=== PATIENT | female | born 1965 | race Two or more races ===

== ENCOUNTER 2024-05-07 08:20 | Inpatient (IN) | payer OTHER, SELFPAY ==
[2024-05-05 09:50] VITALS: BMI 29.2
--- NOTE | 2024-05-05 10:13 | EKG_ITS ---
[facility] Test Date: 2024-05-05 Pat Name: JOEY DURON Department: Room: - Gender: Female Genetics Physician: RTSJC : 1965 Requested By: Herman Greer Order Number: [id number] Reading MD: Herman Greer Measurements Intervals [place] Rate: 83 P: 55 AL: 151 QRS: 12 QRSD: 102 T: 58 QT: 423 QTc: 498 Interpretive Statements SINUS RHYTHM INDETERMINATE AXIS INCOMPLETE RIGHT BUNDLE BRANCH BLOCK No previous ECG available for comparison /[id number]/[id number]
[2024-05-05 10:29] LABS: Basophils # (Auto) 0.1 Thou/mm3 (0.0-0.2); Basophils % (Auto) 1 % (0-2.5); Eosinophils # (Auto) 0.2 Thou/mm3 (0.0-0.5); Eosinophils % (Auto) 3 % (0-10); Hematocrit 37.6 % (36.0-46.0); Hemoglobin 12.8 g/dL (12.0-16.0); Immature Granulocytes % (Auto) 0 % (0-0); Immature Granulocytes Auto 0.03 Thou/mm3 (0.00-0.00); Lymphocytes # (Auto) 2.3 Thou/mm3 (1.0-4.8); Lymphocytes % (Auto) 29 % (10-50); Mean Corpuscular Hemoglobin 30.8 pg (25.0-35.0); Mean Corpuscular Volume 91 fL (80-100); Monocytes # (Auto) 0.8 Thou/mm3 (0.0-0.8); Monocytes % (Auto) 10 % (0-12); Neutrophils # (Auto) 4.6 Thou/mm3 (1.8-7.7); Neutrophils % (Auto) 57 % (37-80); Nucleated Red Blood Cell % 0 /100 WBC (0); Platelet Count 212 Thou/mm3 (140-440); RDW Standard Deviation 41.8 fL (36.4-46.3); Red Blood Count 4.15 Miln/mm3 (4.00-5.20); White Blood Count 8.1 Thou/mm3 (3.6-11.0)
[2024-05-05 10:46] LABS: Alanine Aminotransferase 17 U/L (10-49); Albumin, Serum 4.7 gm/dL (3.5-5.0); Albumin/Globulin Ratio 1.7 (1.2-2.2); Alkaline Phosphatase 83 U/L (46-116); Anion Gap 10 (7-16); Aspartate Amino Transferase 17 U/L (0-34); BUN/Creatinine Ratio 5 Ratio (12-20); Bilirubin,Total 0.5 mg/dL (0.3-1.2); Blood Urea Nitrogen 23 mg/dL (9-23); Calcium 9.9 mg/dL (8.3-10.6); Calcium (Corrected) 9.9 mg/dL (8.5-10.1); Carbon Dioxide 29.7 mMol/L (20.0-31.0); Chloride 95 mMol/L (98-107); Estimated Creatinine Clearance 11.3 mL/min (>60); Globulin 2.7 gm/dL (2.3-3.5); Glucose 240 mg/dL (74-106); Osmolality,Calculated 281 (275-295); Sodium 135 mMol/L (136-145); Total Protein 7.4 gm/dL (5.7-8.2); eGFR 10 See Note
--- NOTE | 2024-05-05 14:21 | SUR.PREOP ---
cardiac history and records reviewed with Dr Greer.
[2024-05-07] VITALS (27 sets, daily range): BP systolic 103–150; BP diastolic 54–73; PULSE 65–81; RESP 12–21; TEMP 36.2–36.7; O2SAT 96–100; BMI 29.3
--- NOTE | 2024-05-07 07:53 | PD.GYNHP ---
Documentation for date of: 05/07/24 PATIENT ACCESS DIRECTOR - HPI History of Present Illness History of present illness: HPI: The patient presents today for a total abdominal hysterectomy. She has a history of long-standing uterine fibroids, previously described as the size of a grapefruit by her former provider. The patient reports that her pain has significantly increased since her stroke in 2020, which she attributes to the use of blood thinners. She also mentions that one side of her abdomen/pelvis feels larger and experiences pain when touched or when putting on her pants. She states that Tylenol provides minimal relief for her pain, and she is unable to use any NSAIDs. The patient is currently on aspirin and under the care of a neurologist in [place]. Her most recent ultrasound, performed in January 2024, revealed a large round uterus with multiple fibroids, the largest measuring 7 centimeters and another significant one at 3 centimeters. The endometrial stripe was not visible. The patient is aware of the planned 2-night postoperative stay at the hospital and subsequent discharge home on pain medications with a graded recovery regimen. She understands that she will follow up with her PCP after 2 weeks for her medical conditions and with the current provider for her postoperative care until complete recovery. Meds Home Medications and Allergies Home Medications ?Medication ?Instructions ?Recorded ?Confirmed ?Type bumetanide 2 mg tablet 2 mg PO BID 05/06/24 05/06/24 History carvedilol 6.25 mg tablet 6.25 mg PO BID 05/06/24 05/06/24 History gabapentin 100 mg capsule 100 mg PO HS 05/06/24 05/06/24 History levothyroxine 50 mcg capsule 50 mcg PO QDAY 05/06/24 05/06/24 History Allergies Allergy/AdvReac Type Severity Reaction Status Date / Time No Known Allergies Allergy Verified 05/05/24 09:49 Exam - PATIENT ACCESS DIRECTOR Narrative Exam Physical Examination: - General: Patient alert and oriented x3. - Respiratory: Lungs clear to auscultation. - Cardiovascular: Heart sounds normal, no murmurs or abnormal sounds. - Abdominal: Uterus palpable one finger below the umbilicus with multiple irregular fibroid-like structures. - Gynecologic: Sterile speculum exam reveals an enlarged lobular cervix without abnormalities. Bi-manual exam consistent with abdominal findings; enlarged uterus noted, adnexa not palpable. PATIENT ACCESS DIRECTOR - Results Labs 05/05/24 10:16 05/05/24 10:16 Imaging and Cardiology US Pelvic: Additional comments: Diagnostic Test Results and Labs: Ultrasound (January 2024): Large round uterus with multiple fibroids, the largest measuring 7 cm and another significant one at 3 cm. Endometrial stripe not visible. Assessment and Plan Assessment and plan (1) Intramural leiomyoma of uterus: Status: Acute Assessment and plan: Treatment Note: Uterine Fibroids: - History of long-standing uterine fibroids - Recent ultrasound (Jan 2024) shows large round uterus with multiple fibroids - Largest fibroid 7cm, another significant one 3cm - Endometrial stripe not visible - Patient reports one side of abdomen/pelvis feels bigger - Experiences pain when touched or putting on pants - Physical exam: uterus one finger below umbilicus, multiple irregular fibroid-like structures palpated - Plan: Total abdominal hysterectomy with bilateral salpingectomy, possible oophorectomy - Patient scheduled and consented for procedure - 2-night postoperative hospital stay planned Chronic Pain: - Reports significant pain increase - Tylenol provides minimal relief, unable to use NSAIDs - Pain worsened after stroke due to blood thinners - Plan: Manage postoperative pain with appropriate medications, monitor and adjust during recovery Stroke History (2020): - Had stroke in 2020 - Currently on aspirin, under care of neurologist from [place] - Plan: Discontinued aspirin, evaluated by primary care for medical optimization - Continue coordinating care with neurologist and primary care provider Postoperative Care: - Follow up with primary care provider after 2 weeks for medical conditions - Follow up with Dr. Stevie Cope for postoperative care until complete recovery Quality Measures Quality Measures VTE prophylaxis
[2024-05-07 09:07] LABS: Potassium 3.6 mMol/L (3.4-5.1)
[2024-05-07] MEDS: SODIUM CHLORIDE 0.9% 500 ML 500 ML 20 ML IV (09:16)
--- NOTE | 2024-05-07 11:31 | PD.GYNPROC ---
Operative Note - [employer] Procedure Date of procedure: 05/07/24 Procedure Performed: Abdominal supracervical hysterectomy Bilateral salpingectomy Indication: Leiomyoma of uterus with intractable bleeding unresponsive to medications Multiple medical complications including history of stroke, end-stage renal disease on chronic dialysis Anesthesia type: General Procedure description: Informed consent was obtained, and the patient was taken to the operating room. Identity was confirmed using double identifiers, and the patient was positioned in the supine position on the operating table. General anesthesia was administered, and the abdomen and perineum were prepped in the usual sterile fashion. A Avitia catheter was placed for continuous drainage, and sterile drapes were applied. A timeout procedure was completed. A Pfannenstiel skin incision was made with a scalpel and carried down through the subcutaneous fat to the rectus fascia. The rectus fascia was incised on either side of the midline, and the incisions were extended bilaterally using Carroll scissors. The rectus fascia was grasped with Michael clamps and dissected off the anterior surface of the rectus muscle superiorly and inferiorly. The rectus muscles were in the midline, and the peritoneum was identified and entered bluntly. The peritoneal opening was gently stretched to create adequate access to the pelvic cavity. An Sam O-ring retractor was placed, and the bowel was packed out of the operative field. The uterus was grasped with a double-tooth tenaculum. A significant amount of bladder adhesion was noted, requiring approximately 20 minutes of dissection to divide adhesions and gain access to the uterovesical peritoneum. The uterus was placed under traction, and dissection was initiated on the right side. The utero-ovarian ligament was divided using the Enseal Large Jaw. The fallopian tube was dissected separately and divided. The round ligament was divided, and the anterior and posterior leaves of the broad ligament were . The anterior leaf was dissected to the bladder reflection to create the bladder flap, and the posterior leaf was dissected down to the uterosacral ligament. Dissection continued down the uterine sidewall until the uterine artery was skeletonized, occluded, and divided. The procedure was repeated on the contralateral side. At the level of the cervix, Snow clamps were applied, and a supracervical hysterectomy was performed. The uterine corpus was amputated and sent for pathological examination. The remaining cervical stump was inspected, and hemostasis was confirmed. The peritoneal edges were reapproximated with 2-0 Vicryl. The rectus muscles were reapproximated using 3-0 Vicryl, and the rectus fascia was closed with 1-0 PDS in a running fashion. The subcutaneous layer was closed using 2-0 Monocryl Stratafix in a running fashion to obliterate space. The skin was closed with guilherme. The incision was cleaned, and a sterile pressure dressing was applied. The patient was undraped, anesthesia was reversed, and the patient was transferred to the recovery room in stable and awake condition. The patient tolerated the procedure well. No acute complications were encountered during the procedure. All instrument, sponge, and lap counts were correct ?2. Estimated blood loss (ml): 100 Complications: none Surgical staff Operation Date: 05/07/24 10:45 Case Staff Anesthesiologist: Herman Greer RNcounty or city auditor: Elidia Buchanan Diagnosis Discharge Diagnosis (1) Intramural leiomyoma of uterus: Status: Acute Problem List Completed Was Problem List Reviewed/Reconciled?: Yes
--- NOTE | 2024-05-07 11:41 | SUR.PHASEI ---
Pt. arrived to recovery via bed, eyes closed, unable to respond, pt. has oral airway in place, VSS, lung sounds clear, equal expansion ramirez., pt. receiving 8 liters 02 via oxymask, dressing to lower abdomen, prineo, dermabond, telfa, abd. pad, hypafix tape intact, no active bleeding noted, iraheta catheter in place, patent and draining, assessed AVF to right upper arm, bruit and thrill present. Report received from Adelfo SIDDIQUI and Dr. Greer.
--- NOTE | 2024-05-07 11:47 | SUR.PHASEI ---
1147: Received report from Concepcion SIDDIQUI. Pt. has oral airway in place, vitals stable, breathing unlabored, dressing to lower ABD CDI, no active bleed noted.
[2024-05-07] MEDS: MORPHINE SULF 1 MG/ML PCA SYRINGE 30 ML 30 MG IV (12:35)
[2024-05-07] MEDS: ONDANSETRON INJ 2 MG/ML INJ 2 ML 4 MG IV (12:46)
--- NOTE | 2024-05-07 13:02 | PD.ANESPROG ---
Documentation for date of: 05/07/24 ANESTHESIA NOTE: Patient had GETA for abdominal hysterectomy with BSO earlier today. Pre-op, she has h/o ESRD (last HD yesterday via R arm AVG), HTN, DM, CHF (EF 40% with some valvular insufficiency as reported in cardiac notes, s/p AICD), and CVA with R sided weakness with R UE weakness improved but still with residual R LE weakness and uses walker. She also reported h/o b/l blindness lasting 2 months about 2 months ago and seen by specialist and had b/l cataract surgery after which her vision is better. She did very well intra-op and has been in PACU post op doing well, resting comfortably, VSS. She was given 2 gm IV Ancef and 500 mg IV Flagyl intra-op, EBL 100 cc, Avitia placed. She received about 350 cc of IV fluids intra-op and another about 100 cc of NS in PACU. Magnet was placed over her AICD intra-op before the incision and taken off at the end of surgery. I discussed with the surgeon to consider medicine/nephrology consult to continue her dialysis while she is inpatient. Herman Greer MD Anesthesia Progress Note Progress Note Most recent Vital Signs: Last Vital Signs Temp 97.2 F 05/07/24 13:00 Pulse 67 05/07/24 13:00 Resp 12 05/07/24 13:00 BP 115/60 05/07/24 13:00 Pulse Ox 98 05/07/24 13:00 O2 Flow Rate 3 05/07/24 13:00
[2024-05-07] MEDS: SODIUM CHLORIDE 0.9% 1000 ML 1,000 ML 75 ML IV (13:54)
--- NOTE | 2024-05-07 15:19 | ESCONSULT_ITS ---
HPI Consultation - Hospitalist Data of Consult Requesting Physician: Stevie Cope MD Primary Care Provider: Jorge A Crocker MD Consult Narrative Reason for consult: ESRD on hemodialysis, postop management History of present illness: Patient is a 58-year-old female with history of leiomyoma of uterus who presented for hysterectomy. She has a past medical history noted for ESRD on hemodialysis, followed by Dr. Eugene in [place], receiving hemodialysis through her right upper extremity fistula. Per records, she also has history of heart failure with reduced EF of 40%. Per reports, she also has a history of CVA with right-sided residual, bilateral blindness, hypothyroidism and hypertension. She is status post AICD. Patient has been having worsening abdominal pain that is associated with nausea and vomiting. She was diagnosed with leiomyoma of uterus with intractable bleeding unresponsive to medications. Patient followed with [employer] who arranged for hysterectomy. She is a status post abdominal supracervical hysterectomy and bilateral salpingectomy by Dr. Cope. [employer] recommended to inpatient night stays. Internal medicine team was consulted for management of multiple chronic health conditions and for postoperative management. Patient was seen postoperatively. She was in the PACU. She has mild pain which is responding to IV opiates. She has nausea. She did not have any vomiting after the surgery. She reported no chest pain or shortness of breath. Past medical history: As above Social history: She reported no current tobacco use, alcohol use, or illicit drug use Surgical history: She reported multiple surgeries including , cholecystectomy, permacath insertion, dialysis fistula on the right upper extremity, in addition to her recent hysterectomy Family history: Positive for diabetes in her sister. Negative for kidney disease No reported drug allergies Medications were reviewed cc:: cc: Stevie Cope MD Review of Systems Review of Systems Narrative Review of Systems: General: No fevers, no chills, no weight loss, no sweating, no generalized weakness. Eyes: No changes in vision from baseline. HEENT: No head trauma, no neck trauma, no difficulty swallowing, no nasal congestion, no sore throat. Respiratory: No cough, no sputum production, no shortness of breath. Cardiovascular: No chest pain, no palpitations, no extremity swelling. Abdomen: Positive abdominal pain, positive nausea, no vomiting, no diarrhea, no constipation. Genitourinary: No dysuria, no changes in urine appearance, no changes in urine amount and frequency from baseline Skin: No new rash reported. Musculoskeletal: No muscle pain, no muscle weakness. Neuro: No weakness, no numbness, no facial deviation, no dizziness. Psych: No current depressive symptoms. No anxiety. Meds Home Medications and Allergies Home Medications ?Medication ?Instructions ?Recorded ?Confirmed ?Type bumetanide 2 mg tablet 2 mg PO BID 05/06/24 05/06/24 History carvedilol 6.25 mg tablet 6.25 mg PO BID 05/06/24 05/06/24 History gabapentin 100 mg capsule 100 mg PO HS 05/06/24 05/06/24 History levothyroxine 50 mcg capsule 50 mcg PO QDAY 05/06/24 05/06/24 History Allergies Allergy/AdvReac Type Severity Reaction Status Date / Time No Known Allergies Allergy Verified 05/07/24 17:04 Exam Vital Signs Temp Pulse Resp BP Pulse Ox O2 Flow Rate 97.2 F 67 17 108/67 96 3 05/07/24 14:00 05/07/24 14:00 05/07/24 14:00 05/07/24 14:00 05/07/24 14:00 05/07/24 14:00 Narrative General: Alert and oriented x3. In no acute distress. Eyes: Pupils are equal and reactive to light bilaterally. HEENT: Atraumatic, normocephalic. No JVD noted. Cardiovascular: Normal S1 and S2. Normal rate and regular rhythm. No murmurs appreciated. No peripheral pitting edema noted. No JVD noted. Respiratory: No respiratory distress. Lungs are clear to auscultation bilaterally. No wheezing or crackles heard. Abdomen: Abdominal binder in place, abdomen is soft and nontender to palpation. Wound dressing appears intact without oozing. Skin: No rash. Warm to touch. Musculoskeletal: No gross injuries. Able to move all 4 extremities. Neuro: Alert and oriented x3. Sensation is intact throughout. Strength is 5/5 and symmetric. No focal neuro deficits. Psych: Normal affect and mood. Results - Hospitalist Labs Diagrams: 05/05/24 10:16 05/07/24 08:40 Labs: [facility] 05/07/24 08:40 Potassium 3.6 Assessment & Plan -Hospitalist Patient Synopsis 58-year-old female with history of symptomatic leiomyoma of uterus, heart failure with reduced EF, CVA, status post AICD, ESRD on hemodialysis, who presented for hysterectomy. Leiomyoma of uterus She is a status post abdominal supracervical hysterectomy and bilateral salpingectomy by Dr. Cope. Plan: Management of pain as needed. She is requiring IV morphine. Management of nausea/vomiting as needed Bowel regimen. Watch for bowel movement Recommend to hold IV fluids in the setting of history of CHF. Resume renal diet postoperatively Chronic CHF Status post AICD Per reports, she has history of heart failure with a EF of 40%, status post AICD. She does not look in exacerbation Plan: Resume home Bumex starting tomorrow Resume home carvedilol Recommend against IV fluids if the patient is started on diet given her associated ESRD ESRD on hemodialysis Followed by Dr. Eugene in [place]. She is on Saturday schedule. She receives hemodialysis via right arm fistula. Plan: Consulted Dr. Vigil for hemodialysis sessions Dose medications based on ESRD GFR Monitor BMP Renal diet History of CVA With reported right-sided residuals. No new neurodeficits. Plan: Resume home aspirin starting 05/08. Quality Measures Quality Measures VTE prophylaxis
--- NOTE | 2024-05-07 16:39 | SUR.PHASEI ---
1639: Report given to Concepcion RN, Pt. sitting upright in fowlers position, eating crackers and sipping on water, tolerating well, dressing to ABD CDI, no active bleed noted. Pt. vitals stable, breathing unlabored, no complaint of pain or nausea.
--- NOTE | 2024-05-07 16:40 | SUR.PHASEI ---
Received report on pt. s/p surgery from Olive SIDDIQUI, pt. is resting, AAOx3, VSS, no c/o pain or nausea at this time, dressing to lower abd. CDI, abdominal binder in place, IV flushed and patent, pt. has [employer] button in hand.
[2024-05-07] MEDS: ACETAMINOPHEN IVPB 1,000 MG/100 ML VIAL 250 MG IV ×2 (17:04→23:08)
--- NOTE | 2024-05-07 18:12 | ESCONSULT_ITS ---
HPI Data of Consult Consult date: 05/07/24 Requesting Physician: Stevie Cope MD Admitting Provider: Stevie Cope MD Attending Provider: Stevie Cope MD Primary Care Provider: Jorge A Crocker MD Consult Narrative Reason for consult: ESRD on hemodialysis History of present illness: The patient is a 58-year-old female with a previous medical history of end-stage renal disease on hemodialysis, last dialysis session was done yesterday, hypertension, diabetes, HFrEF status post AICD implantation, status post CVA with right-sided weakness, status post cataract surgery who was admitted to the hospital for elective hysterectomy. Operation went without complications, EBL 100 mL, early postoperative unremarkable. The plan is for the patient to stay in the hospital for a few days for postoperative management and monitoring. PAtient;s compliance program manager is Dr. Eugene in [place]. Relay Worker Dr. Vigil was consulted for end-stage renal disease management and planned dialysis. In the post op room: Blood pressure 198/61, heart rate 67, afebrile. She denies shortness of breath, chest pain, abdominal pain, increased leg swelling. Labs 05/05/2024 showed WBCs 8.1, hemoglobin 12.8, sodium 135, potassium 4.0, chloride 95, BUN 23, creatinine 5, EGFR 10, glucose 240. cc:: cc: Stevie Cope MD Review of Systems Review of Systems Narrative Review of Systems: General: Denies weight loss, fever and chills. HEENT: Denies changes in vision and hearing. Resp: Denies SOB, cough and wheezing. CVS: Denies palpitations and CP. GI: Denies abdominal pain, nausea, vomiting and diarrhea. : Denies dysuria and urinary frequency. MSK: Denies myalgia and joint pain. Denies rash and pruritus. Neuro: Denies headache and syncope. Psych: Denies recent changes in mood. Denies anxiety and depression. Past Medical History Past Medical History NEUROLOGIC: Positive Cerebrovascular Accident CARDIAC: Positive Cardiac Disorders, Coronary Artery Disease and Hypertension GENITOURINARY: Positive Chronic Kidney Disease, Renal Disease and Dialysis REPRODUCTIVE: Positive Fibroids ENT: Positive Cataracts ENDOCRINE: Positive Endocrine Disorders and Diabetes Mellitus Type 2 Exam Vital Signs Temp Pulse Resp BP Pulse Ox O2 Flow Rate 97.1 F 74 20 123/73 96 2 05/07/24 17:00 05/07/24 18:00 05/07/24 18:00 05/07/24 18:00 05/07/24 18:00 05/07/24 18:00 Narrative Exam Physical Exam General: Awake and in no acute distress. Conversational and non-toxic appearing. HEENT: Normocephalic, atraumatic, mucous membranes moist. Heart: Regular rate and rhythm, no murmurs. Lungs: Clear to auscultation with no wheezing or crackles. Abdomen: Soft, nondistended, nontender, positive bowel sounds. ?No guarding or rebound tenderness. Neurologic: Alert and oriented x3, and patient able to move all 4 extremities. Extremities: No edema. AV fistula + thrill. Skin: No rash or ecchymoses. Results Labs 05/08/24 05:39 05/08/24 05:39 Labs: BMP 05/07/24 08:40 Potassium 3.6 Quality Measures Quality Measures VTE prophylaxis Medications Home Medications and Allergies Home Medications ?Medication ?Instructions ?Recorded ?Confirmed ?Type bumetanide 2 mg tablet 2 mg PO BID 05/06/24 05/06/24 History carvedilol 6.25 mg tablet 6.25 mg PO BID 05/06/24 05/06/24 History gabapentin 100 mg capsule 100 mg PO HS 05/06/24 05/06/24 History levothyroxine 50 mcg capsule 50 mcg PO QDAY 05/06/24 05/06/24 History Allergies Allergy/AdvReac Type Severity Reaction Status Date / Time No Known Allergies Allergy Verified 05/07/24 17:04 Visit Medications Bumetanide (Bumetanide 0.5 Mg Tablet) 2 mg PO BID [facility] Stop: 06/06/24 20:59 Carvedilol (Carvedilol 3.125 Mg Tablet) 6.25 mg PO BID [facility] Stop: 06/06/24 20:59 Diphenhydramine HCl (Diphenhydramine Inj 50 Mg/Ml Vial) 25 mg IV Q2HR PRN PRN Reason: ITCHING Stop: 06/06/24 11:42 Docusate Sodium (Docusate Sod 100 Mg Capsule) 100 mg PO QDAY [facility] Stop: 06/07/24 08:59 Gabapentin (Gabapentin 100 Mg Capsule) 100 mg PO HS [facility] Stop: 06/06/24 20:59 Promethazine HCl 25 mg/ Sodium (Chloride) 51 mls @ 2.5 mls/min IV Q6HR PRN PRN Reason: NAUSEA OR VOMITING Stop: 06/06/24 11:42 Sodium Chloride (Ns) 1,000 mls @ 75 mls/hr IV .[id number] [facility] Stop: 06/06/24 11:44 Last Admin: 05/07/24 13:54 Dose: 75 mls/hr Cefazolin Sodium (Ancef 2gm Ivpb) 2 gm in 100 mls @ 100 mls/hr IV Q8HR [facility] Stop: 05/14/24 18:59 Metronidazole (Flagyl 500 Mg Iv) 500 mg in 100 mls @ 200 mls/hr IV Q12H [facility] Stop: 05/14/24 22:29 Acetaminophen (Ofirmev Inj) 1,000 mg in 100 mls @ 250 mls/hr IV Q6H [facility] Stop: 05/10/24 11:59 Last Admin: 05/07/24 17:04 Dose: 250 mls/hr Magnesium Hydroxide (Milk Of Magnesia Susp 30 Ml Udc) 30 ml PO X1 ONE Stop: 05/08/24 08:01 Midazolam HCl (Midazolam Inj 1 Mg/Ml Vial 2 Ml) 1 mg IV Q5MIN PRN PRN Reason: ANXIETY Stop: 05/08/24 11:17 Morphine Sulfate (Morphine Sulf 1 Mg/Ml Inspector Dials Syringe 30 Ml) 30 mg IV PER ORDER PRN; Protocol PRN Reason: PAIN Stop: 05/12/24 11:42 Last Admin: 05/07/24 12:35 Dose: 30 mg Non-Formulary Medication (Levothyroxine) 50 mcg PO ACBR [facility] Stop: 06/07/24 05:59 Ondansetron HCl (Ondansetron Inj 2 Mg/Ml Inj 2 Ml) 4 mg IV Q6HR PRN; Protocol PRN Reason: NAUSEA OR VOMITING Stop: 06/06/24 05:59 Last Admin: 05/07/24 12:46 Dose: 4 mg Discontinued Medications Fentanyl Citrate (Fentanyl Cit Inj 50 Mcg/Ml Amp 2ml) 50 mcg IV Q5MIN PRN PRN Reason: PAIN SCALE 4-10(Mod-Sev Stop: 05/07/24 13:20 Hydralazine HCl (Hydralazine Inj 20 Mg/Ml Vial) 5 mg IV Q20MIN PRN PRN Reason: SEE COMMENTS Stop: 05/07/24 13:00 Hydromorphone HCl (Hydromorphone Inj 2 Mg/Ml Vial) 0.5 mg IV Q10MIN PRN PRN Reason: PAIN SCALE 4-10(Mod-Sev Stop: 05/07/24 13:20 Cefazolin Sodium (Ancef 2gm Ivpb) 2 gm in 100 mls @ 100 mls/hr IV Q8HR MAX Stop: 05/14/24 05:59 Metronidazole (Flagyl 500 Mg Iv) 500 mg in 100 mls @ 200 mls/hr IV Q12H MAX Stop: 05/14/24 07:59 Lactated Ringer's (Lactated Ringers) 1,000 mls @ 20 mls/hr IV .Q24H ONE Stop: 05/08/24 05:59 Sodium Chloride (Ns) 500 mls @ 20 mls/hr IV .Q24H ONE Stop: 05/08/24 05:59 Last Admin: 05/07/24 09:16 Dose: 20 mls/hr Acetaminophen (Ofirmev Inj) 1,000 mg in 100 mls @ 250 mls/hr IV Q6H MAX Stop: 05/10/24 11:59 Meperidine HCl (Meperidine Inj 50 Mg/Ml Vial) 12.5 mg IV Q5M PRN PRN Reason: SHIVERING Stop: 05/07/24 14:00 Metoprolol Tartrate (Metoprolol Tartrate Inj 1 Mg/Ml Amp 5 Ml) 1 mg IVP Q5MIN PRN PRN Reason: TACHYCARDIA Stop: 05/07/24 13:26 Assessment & Plan Plan The patient is a 58-year-old female with a previous medical history of end-stage renal disease on hemodialysis, last dialysis session was done yesterday, hypertension, diabetes, HFrEF status post AICD implantation, status post CVA with right-sided weakness, status post cataract surgery who was admitted to the hospital for elective hysterectomy. Operation went without complications, EBL 100 mL, early postoperative unremarkable. The plan is for the patient to stay in the hospital for a few days for postoperative management and monitoring. Relay Worker Dr. Vigil was consulted for end-stage renal disease management and planned dialysis. #ESRD on dialysis Plan: - continue with dialysis as planned #S/p hysterectomy 05/07/24 #HTN #Diabetes #HFrEF EF 40% s/p ICD placement #History of CVA with right sided hemiparesis - management per primary team Plan of care discussed with attending Dr. Yaritza Ocampo MD, PGY 1. Attending Provider Attestation/Addendum Patient seen and examined with resident physician Dr. Rodriguez. Note reviewed, agree with findings and recommendations. Patient of Dr. Eugene admitted for hysterectomy. Dialysis scheduled for tomorrow. Thank you Dr. Haddad for allowing me to participate in the care of Ms. Paredes
--- NOTE | 2024-05-07 18:15 | SUR.OPER ---
Pt. sitting up eating her dinner, no c/o pain or nausea at this time.
--- NOTE | 2024-05-07 19:20 | SUR.PHASEI ---
Called and gave report on pt. s/p surgery to Luis SIDDIQUI on M/S unit, pt. is resting, no c/o pain or nausea at this time.
--- NOTE | 2024-05-07 19:30 | SUR.PHASEI ---
Pt. transferred to room 359 via bed with all of belongings, VSS, no c/o pain or nausea, dressing to lower abdomen CDI, pt. receiving 2 liters 02 via NC, lung sounds clear, equal expansion ramirez., IV flushed and patent, iraheta intact and patent, pt. has BIOINFORMATICS TECHNICIAN button within reach, educated on use. Luis SIDDIQUI assumed care of pt.
[2024-05-07] MEDS: ceFAZolin/D5W 2 GM IV 2 GM/100 ML BAG IV (20:33)
[2024-05-07] MEDS: GABAPENTIN 100 MG CAPSULE PO (20:33)
[2024-05-07] MEDS: BUMETANIDE 0.5 MG TABLET 2 MG PO (20:34)
[2024-05-07] MEDS: carVEDILOL 3.125 MG TABLET 6.25 MG PO (20:35)
[2024-05-07] MEDS: metroNIDAZOLE/NS 500 MG IVPB 500 MG/100 ML BAG 200 MG IV (22:01)
[2024-05-07] MEDS: INSULIN LISPRO (AdmeLOG) 1 UNIT/0.01 ML UNIT SC (23:09)
[2024-05-08] VITALS (24 sets, daily range): BP systolic 108–147; BP diastolic 47–71; PULSE 71–80; RESP 16–18; TEMP 36.2–36.7; O2SAT 94–100
[2024-05-08] MEDS: ONDANSETRON INJ 2 MG/ML INJ 2 ML 4 MG IV (02:08)
[2024-05-08] MEDS: ceFAZolin/D5W 2 GM IV 2 GM/100 ML BAG IV ×2 (05:19→21:05)
[2024-05-08 06:14] LABS: Basophils # (Auto) 0.1 Thou/mm3 (0.0-0.2); Basophils % (Auto) 0 % (0-2.5); Eosinophils % (Auto) 0 % (0-10); Hematocrit 32.7 % (36.0-46.0); Hemoglobin 10.9 g/dL (12.0-16.0); Immature Granulocytes % (Auto) 0 % (0-0); Immature Granulocytes Auto 0.06 Thou/mm3 (0.00-0.00); Lymphocytes % (Auto) 14 % (10-50); Mean Corpuscular HGB Conc 33.3 g/dl (31.0-37.0); Mean Corpuscular Hemoglobin 30.8 pg (25.0-35.0); Mean Corpuscular Volume 92 fL (80-100); Monocytes # (Auto) 1.6 Thou/mm3 (0.0-0.8); Monocytes % (Auto) 11 % (0-12); Neutrophils # (Auto) 10.4 Thou/mm3 (1.8-7.7); Neutrophils % (Auto) 74 % (37-80); Nucleated Red Blood Cell % 0 /100 WBC (0); Platelet Count 167 Thou/mm3 (140-440); RDW Standard Deviation 42.7 fL (36.4-46.3); Red Blood Count 3.54 Miln/mm3 (4.00-5.20); White Blood Count 14.1 Thou/mm3 (3.6-11.0)
[2024-05-08 06:51] LABS: Anion Gap 13 (7-16); BUN/Creatinine Ratio 5 Ratio (12-20); Blood Urea Nitrogen 31 mg/dL (9-23); Calcium 8.5 mg/dL (8.3-10.6); Chloride 97 mMol/L (98-107); Estimated Creatinine Clearance 9.4 mL/min (>60); Glucose 149 mg/dL (74-106); Osmolality,Calculated 277 (275-295); Potassium 3.8 mMol/L (3.4-5.1); Sodium 134 mMol/L (136-145); eGFR 8 See Note
[2024-05-08] MEDS: INSULIN LISPRO (AdmeLOG) 1 UNIT/0.01 ML UNIT SC ×3 (07:19→21:06)
--- NOTE | 2024-05-08 07:51 | PD.RESPRO ---
Documentation for date of: 05/08/24 Subjective Subjective Interval history: Patient seen and examined at bedside. No acute overnight events. Vitals, labs reviewed. Leukocytosis likely reactive after surgical procedure. CHEM panel significant for ESRD related labs, with patient's scheduled to undergo hemodialysis today. Patient states she does feel some pain when she coughs but overall is well-controlled and has not had to use the THERAPIST RRT pump. She is tolerating diet without any nausea or vomiting. She has not passed gas or had a bowel movement at this time. Will try stool softener. She is complaining about her Avitia catheter irritating her. Would recommend a voiding trial and possibly DC the Avitia if patient is to spontaneously void on her own. Also recommend incentive spirometry to prevent postop atelectasis. Exam Vital Signs Temp Pulse Resp BP Pulse Ox O2 Del Method O2 Flow Rate 97.8 F 73 16 115/65 97 Nasal Cannula 2 05/08/24 04:00 05/08/24 04:00 05/08/24 04:00 05/08/24 04:00 05/08/24 04:00 05/08/24 04:00 05/08/24 04:00 Narrative Exam Gen: AAOx3, resting comfortably, pleasant to speak with HEENT: NCAT, PERRLA, EOMI, MMM CVS: normal S1, S2. RRR. No MRG Resp: CTA B/L. No rhonchi, rales, crackles or wheezing Abd: soft, mild TTP, non-distended. BS+ in all 4 quadrants. Abdominal binder noted : Avitia noted, no hematuria/clots/sediment MSK: Good ROM in BUE & BLE. No edema or rash. Fistula in RUE Neuro: CN II-XII grossly intact. Strength 5/5 in BUE & BLE. Objective Labs 05/09/24 05:30 05/09/24 05:30 Labs: Laboratory Results - last 24 hr 05/07/24 05/08/24 08:40 05:39 WBC 14.1 H D RBC 3.54 L Hgb 10.9 L Hct 32.7 L MCV 92 MCH 30.8 MCHC 33.3 RDW Std Deviation 42.7 Plt Count 167 D Neut % (Auto) 74 Lymph % (Auto) 14 [place] % (Auto) 11 Eos % (Auto) 0 Baso % (Auto) 0 Neut # (Auto) 10.4 H Lymph # (Auto) 2.0 [place] # (Auto) 1.6 H Eos # (Auto) 0.0 Baso # (Auto) 0.1 Immature Gran # (Auto) 0.06 H Absolute Nucleated RBC 0.00 Immature Gran % 0 Nucleated RBC % 0 Sodium 134 L Potassium 3.6 3.8 Chloride 97 L Carbon Dioxide 24.0 Anion Gap 13 BUN 31 H Creatinine 6.0 H* D Estim Creat Clear Calc 9.4 L eGFR 8 L* BUN/Creatinine Ratio 5 L Glucose 149 H D Calculated Osmolality 277 Calcium 8.5 Quality Measures Quality Measures VTE prophylaxis Assessment & Plan Assessment Current Active Medications: Generic Name Dose Route Start Last Admin Trade Name Freq PRN Reason Stop Dose Admin Bumetanide 2 mg 05/07/24 21:00 05/07/24 20:34 Bumetanide 0.5 Mg Tablet PO 06/06/24 20:59 2 mg BID MAX Administration Carvedilol 6.25 mg 05/07/24 21:00 05/07/24 20:35 Carvedilol 3.125 Mg Tablet PO 06/06/24 20:59 6.25 mg BID MAX Administration Dextrose 25 ml 05/07/24 22:33 Dextrose 50%-Water Inj 50 Ml Syringe IV 06/06/24 22:32 Q15MIN PRN BG 50-70 responsive npo pt Dextrose 50 ml 05/07/24 22:33 Dextrose 50%-Water Inj 50 Ml Syringe IV 06/06/24 22:32 Q15MIN PRN BG <50 OR BG <70 & pt unresponsive Diphenhydramine HCl 25 mg 05/07/24 11:43 Diphenhydramine Inj 50 Mg/Ml Vial IV 06/06/24 11:42 Q2HR PRN ITCHING Docusate Sodium 100 mg 05/08/24 09:00 Docusate Sod 100 Mg Capsule PO 06/07/24 08:59 QDAY MAX Gabapentin 100 mg 05/07/24 21:00 05/07/24 20:33 Gabapentin 100 Mg Capsule PO 06/06/24 20:59 100 mg HS MAX Administration Glucagon 1 mg 05/07/24 22:33 Glucagon Inj 1 Mg Vial IM Q15MIN PRN BG <70, and no IV access Promethazine HCl 25 mg/ Sodium 51 mls @ 2.5 mls/min 05/07/24 11:43 Chloride IV 06/06/24 11:42 Q6HR PRN NAUSEA OR VOMITING Sodium Chloride 1,000 mls @ 75 mls/hr 05/07/24 11:45 05/07/24 13:54 Ns IV 06/06/24 11:44 75 mls/hr .[id number] MAX Administration Cefazolin Sodium 2 gm in 100 mls @ 100 mls/hr 05/07/24 19:00 05/08/24 05:19 Ancef 2gm Ivpb IV 05/14/24 18:59 100 mls/hr Q8HR MAX Administration Metronidazole 500 mg in 100 mls @ 200 mls/hr 05/07/24 22:30 05/07/24 22:01 Flagyl 500 Mg Iv IV 05/14/24 22:29 200 mls/hr Q12H MAX Administration Acetaminophen 1,000 mg in 100 mls @ 250 mls/hr 05/08/24 08:00 Ofirmev Inj IV 05/10/24 11:59 Q6H [facility] Insulin Human Lispro 0 unit 05/07/24 22:48 05/08/24 07:19 Insulin Lispro (Admelog) 1 Unit/0.01 Ml Unit SC 06/06/24 22:47 1 unit ACHS MAX Administration Protocol Magnesium Hydroxide 30 ml 05/08/24 08:00 Milk Of Magnesia Susp 30 Ml Udc PO 05/08/24 08:01 X1 ONE Morphine Sulfate 30 mg 05/07/24 11:43 05/07/24 12:35 Morphine Sulf 1 Mg/Ml Peanut Sorter Syringe 30 Ml IV 05/12/24 11:42 30 mg PER ORDER PRN Administration PAIN Protocol Non-Formulary Medication 50 mcg 05/08/24 06:00 05/08/24 07:10 Levothyroxine PO 06/07/24 05:59 Not Given ACBR MAX Ondansetron HCl 4 mg 05/07/24 06:00 05/08/24 02:08 Ondansetron Inj 2 Mg/Ml Inj 2 Ml IV 06/06/24 05:59 4 mg Q6HR PRN Administration NAUSEA OR VOMITING Protocol Plan Patient is a 58-year-old female with ESRD on HD MWF, HFrEF with last EF 40% hypertension, hypothyroidism and history of CVA who underwent total abdominal hysterectomy with bilateral salpingectomy with gynecology. Postop day 1. Hospitalist team was consulted to manage comorbid conditions, including CHF, ESRD. #Uterine fibroids, s/p BROOKE BS Patient is postop day 1 Continue pain control with Tylenol, gabapentin and p.o. Dilaudid as needed On Ancef and Flagyl Zofran and promethazine as needed Continue bowel regimen with goal of BM and passed gas. Patient is on docusate and received milk of mag x1; can try dulcolax enema or lactulose. If patient does not have a BM, can consider trying movantik for opioid-related constipation Recommend incentive spirometer to prevent postop atelectasis #ESRD on HD MWF CHEM panel consistent with ESRD labs Nephrology consulted for inpatient hemodialysis Renally dose medications and avoid nephrotoxic agents when possible #HFrEF, last EF 40% #HTN Does not appear to be in exacerbation, as she is saturating well on room air and has no pitting edema in her BLE, with clear breath sounds Would advise gentle IV fluids although patient is tolerating diet at this time Resume home Bumex and Coreg Continue to monitor vitals and renal function #Hypothyroidism Continue home levothyroxine 50 mcg #History of CVA Would recommend starting 81mg ASA Thank you for allowing us to participate in the care of your patient! Patient seen and care discussed with my attending Dr. Haddad. Sarwat Alonzo MD PGY-3 Attending Provider Attestation/Addendum I reviewed labs, imaging, EKG, home medications and prior available records. Face to face evaluation was performed by me. I have personally examined the patient and discussed assessment and plan with the IM team. I reviewed the resident note and agree with the plan with exceptions as below. Leiomyoma status post hysterectomy ESRD on hemodialysis History of CVA Chronic HFpEF Hypothyroidism Management of pain and constipation as needed. Removed Avitia catheter Monitor for bowel movement Hemodialysis on 05/08. Nephrology is following Resume home levofloxacin Management of post hysterectomy per primary team
[2024-05-08] MEDS: carVEDILOL 3.125 MG TABLET 6.25 MG PO (09:12)
[2024-05-08] MEDS: ACETAMINOPHEN IVPB 1,000 MG/100 ML VIAL 250 MG IV ×2 (09:12→20:32)
[2024-05-08] MEDS: DOCUSATE SOD 100 MG CAPSULE PO (09:12)
[2024-05-08] MEDS: BUMETANIDE 0.5 MG TABLET 2 MG PO (09:12)
[2024-05-08] MEDS: Milk Of Magnesia Susp 30 ML UDC PO (09:17)
[2024-05-08] MEDS: metroNIDAZOLE/NS 500 MG IVPB 500 MG/100 ML BAG 200 MG IV ×2 (10:32→22:00)
--- NOTE | 2024-05-08 10:51 | CHAP ---
Patient expressed gratitude for visit and prayer.
[2024-05-08] MEDS: EPOETIN ALFA-EPBX INJ 10,000 UNIT/ML VIAL (NON-ESRD) 10000 UNIT SC (14:32)
--- NOTE | 2024-05-08 15:12 | ESPR_ITS ---
Documentation for date of: 05/08/24 Subjective Subjective Interval history: The patient is a 58-year-old female with a previous medical history of end-stage renal disease on hemodialysis, last dialysis session was done yesterday, hypertension, diabetes, HFrEF status post AICD implantation, status post CVA with right-sided weakness, status post cataract surgery who was admitted to the hospital for elective hysterectomy. Operation went without complications, EBL 100 mL, early postoperative unremarkable. The plan is for the patient to stay in the hospital for a few days for postoperative management and monitoring. P[employer]ient;s semiconductor testing group leader is Dr. Eugene in [place]. Catalyst Operator Gas[employer] Dr. Vigil was consulted for end-stage renal disease management and planned dialysis. In the post op room: Blood pressure 198/61, heart rate 67, afebrile. She denies shortness of breath, chest pain, abdominal pain, increased leg swelling. Labs 05/05/2024 showed WBCs 8.1, hemoglobin 12.8, sodium 135, potassium 4.0, chloride 95, BUN 23, creatinine 5, EGFR 10, glucose 240. 05/08/24: Patient was seen and examined by the bedside. No acute overnight events. Patient reports her abdominal pain is well conrolled, rarely uses EXTENSION SPECIALIST pump. UO is 0.2L. Her dialysis session is scheduled for today. The patient will receive dialysis inpatient on Saturday if she will stay in hospital further. Pertinent labs WBC 14.1, hemoglobin 10.9, hematocrit 32.7%, sodium 134, potassium 3.8, BUN 31, creatinine 6, EGFR 8. Did not have bowel movement yet, will be started on stool softeners. UO is 200 ml, Avitia will removed if she will be able to void on her own. Exam Vital Signs Temp Pulse Resp BP Pulse Ox O2 Del Method O2 Flow Rate 98.0 F 74 16 128/54 L 94 L Nasal Cannula 2 05/08/24 13:47 05/08/24 15:01 05/08/24 13:47 05/08/24 15:01 05/08/24 13:47 05/08/24 12:00 05/08/24 13:47 Narrative Exam Physical Exam General: Awake and in no acute distress. Conversational and non-toxic appearing. HEENT: Normocephalic, atraumatic, mucous membranes moist. Heart: Regular rate and rhythm, no murmurs. Lungs: Clear to auscultation with no wheezing or crackles. Abdomen: Soft, nondistended, nontender, positive bowel sounds. ?No guarding or rebound tenderness. Neurologic: Alert and oriented x3, and patient able to move all 4 extremities. Extremities: No edema. AV fistula + thrill. Skin: No rash or ecchymoses. Objective Labs 05/08/24 05:39 05/08/24 05:39 Labs: Laboratory Results - last 24 hr 05/08/24 05:39 WBC 14.1 H D RBC 3.54 L Hgb 10.9 L Hct 32.7 L MCV 92 MCH 30.8 MCHC 33.3 RDW Std Deviation 42.7 Plt Count 167 D Neut % (Auto) 74 Lymph % (Auto) 14 [place] % (Auto) 11 Eos % (Auto) 0 Baso % (Auto) 0 Neut # (Auto) 10.4 H Lymph # (Auto) 2.0 [place] # (Auto) 1.6 H Eos # (Auto) 0.0 Baso # (Auto) 0.1 Immature Gran # (Auto) 0.06 H Absolute Nucleated RBC 0.00 Immature Gran % 0 Nucleated RBC % 0 Sodium 134 L Potassium 3.8 Chloride 97 L Carbon Dioxide 24.0 Anion Gap 13 BUN 31 H Creatinine 6.0 H* D Estim Creat Clear Calc 9.4 L eGFR 8 L* BUN/Creatinine Ratio 5 L Glucose 149 H D Calculated Osmolality 277 Calcium 8.5 Quality Measures Quality Measures VTE prophylaxis Assessment & Plan Assessment Current Active Medications: Generic Name Dose Route Start Last Admin Trade Name Freq PRN Reason Stop Dose Admin Bumetanide 2 mg 05/07/24 21:00 05/08/24 09:12 Bumetanide 0.5 Mg Tablet PO 06/06/24 20:59 2 mg BID MAX Administration Carvedilol 6.25 mg 05/07/24 21:00 05/08/24 09:12 Carvedilol 3.125 Mg Tablet PO 06/06/24 20:59 6.25 mg BID MAX Administration Dextrose 25 ml 05/07/24 22:33 Dextrose 50%-Water Inj 50 Ml Syringe IV 06/06/24 22:32 Q15MIN PRN BG 50-70 responsive npo pt Dextrose 50 ml 05/07/24 22:33 Dextrose 50%-Water Inj 50 Ml Syringe IV 06/06/24 22:32 Q15MIN PRN BG <50 OR BG <70 & pt unresponsive Diphenhydramine HCl 25 mg 05/07/24 11:43 Diphenhydramine Inj 50 Mg/Ml Vial IV 06/06/24 11:42 Q2HR PRN ITCHING Docusate Sodium 100 mg 05/08/24 09:00 05/08/24 09:12 Docusate Sod 100 Mg Capsule PO 06/07/24 08:59 100 mg QDAY MAX Administration Gabapentin 100 mg 05/07/24 21:00 05/07/24 20:33 Gabapentin 100 Mg Capsule PO 06/06/24 20:59 100 mg HS MAX Administration Glucagon 1 mg 05/07/24 22:33 Glucagon Inj 1 Mg Vial IM Q15MIN PRN BG <70, and no IV access Hydromorphone HCl 2 mg 05/08/24 08:00 Hydromorphone Hcl 2 Mg Tablet PO 05/13/24 07:59 Q3HR PRN PAIN Promethazine HCl 25 mg/ Sodium 51 mls @ 2.5 mls/min 05/07/24 11:43 Chloride IV 06/06/24 11:42 Q6HR PRN NAUSEA OR VOMITING Cefazolin Sodium 2 gm in 100 mls @ 100 mls/hr 05/07/24 19:00 05/08/24 13:58 Ancef 2gm Ivpb IV 05/14/24 18:59 Not Given Q8HR MAX Metronidazole 500 mg in 100 mls @ 200 mls/hr 05/07/24 22:30 05/08/24 10:32 Flagyl 500 Mg Iv IV 05/14/24 22:29 200 mls/hr Q12H MAX Administration Acetaminophen 1,000 mg in 100 mls @ 250 mls/hr 05/08/24 08:00 05/08/24 13:58 Ofirmev Inj IV 05/10/24 11:59 Not Given Q6H MAX Insulin Human Lispro 0 unit 05/07/24 22:48 05/08/24 11:15 Insulin Lispro (Admelog) 1 Unit/0.01 Ml Unit SC 06/06/24 22:47 Not Given ACHS [facility] Protocol Non-Formulary Medication 50 mcg 05/08/24 06:00 05/08/24 07:10 Levothyroxine PO 06/07/24 05:59 Not Given ACBR [facility] Ondansetron HCl 4 mg 05/07/24 06:00 05/08/24 02:08 Ondansetron Inj 2 Mg/Ml Inj 2 Ml IV 06/06/24 05:59 4 mg Q6HR PRN Administration NAUSEA OR VOMITING Protocol Plan The patient is a 58-year-old female with a previous medical history of end-stage renal disease on hemodialysis, last dialysis session was done yesterday, hypertension, diabetes, HFrEF status post AICD implantation, status post CVA with right-sided weakness, status post cataract surgery who was admitted to the hospital for elective hysterectomy. Operation went without complications, EBL 100 mL, early postoperative unremarkable. The plan is for the patient to stay in the hospital for a few days for postoperative management and monitoring. Catalyst Operator Gas[employer] Dr. Vigil was consulted for end-stage renal disease management and planned dialysis. #ESRD on dialysis Plan: - continue with dialysis as planned #S/p hysterectomy 05/07/24 #HTN #Diabetes #HFrEF EF 40% s/p ICD placement #History of CVA with right sided hemiparesis - management per primary team Plan of care discussed with attending Dr. Yaritza Ocampo MD, PGY 1. Attending Provider Attestation/Addendum Patient seen and examined with resident physician Dr. Rodriguez. Note reviewed, agree with findings and recommendations. Patient of Dr. Eugene admitted for hysterectomy. Patient currently seen on dialysis. Tolerating dialysis without any problems. Hemodialysis for 3 hours, 2K, ultrafiltration 2-3 L, Epogen 6000, no heparin ordered. Plan of care discussed with the dialysis nurse. Please see dialysis flowsheet for further details.
[2024-05-08 15:29] LABS: Hepatitis A Antibody IgM Non Reactive (Non React); Hepatitis B Core Antibody IgM Non Reactive (Non React); Hepatitis B Surface Ab Reactive (Immune) (Immune); Hepatitis B Surface Antigen Non Reactive (Non React); Hepatitis C Antibody Non Reactive (Non React)
--- NOTE | 2024-05-08 15:31 | PD.GYNPROG ---
Documentation for date of: 05/08/24 INSPECTOR MATERIAL DISPOSITION Subjective Subjective Interval history: Patient doing well this morning. Pain is adequately controlled on the current regimen. No incisional complaints, no chest pain, shortness of breath, breathing difficulties. Ambulating, tolerating p.o., Hospitalist and nephrology consulting due to her end-stage renal disease requiring dialysis Exam Vital Signs Temp Pulse Resp BP Pulse Ox O2 Del Method O2 Flow Rate 98.0 F 72 16 134/58 H 94 L Nasal Cannula 2 05/08/24 13:47 05/08/24 15:30 05/08/24 13:47 05/08/24 15:30 05/08/24 13:47 05/08/24 12:00 05/08/24 13:47 Constitutional Constitutional: no acute distress Routine HEENT Exam Head: Present normocephalic and atraumatic Eye: Present EOMI and PERRL ENT: Present mucous membranes moist Routine Neck Exam Neck: Present supple and trachea midline Routine Respiratory Exam Respiratory: Present chest non-tender, lungs clear, normal breath sounds and no resp distress Routine Cardiovascular Exam Cardiovascular: Present RRR Routine Abdominal Exam Abdominal: Present soft and normoactive bowel sounds Routine Extremities Exam Extremities: Present full ROM Routine Skin Exam Skin: Present intact and dry Routine Neurological Exam Neurological: Present alert, oriented X3 and CN II-XII intact Routine Psychiatric Exam Psychiatric: Present normal affect and normal thought process Urinary Catheter Management Cath placed during this visit: no INSPECTOR MATERIAL DISPOSITION - PN: Obj Data Labs 05/08/24 05:39 05/08/24 05:39 Labs: Laboratory Results - last 24 hr 05/08/24 05:39 WBC 14.1 H D RBC 3.54 L Hgb 10.9 L Hct 32.7 L MCV 92 MCH 30.8 MCHC 33.3 RDW Std Deviation 42.7 Plt Count 167 D Neut % (Auto) 74 Lymph % (Auto) 14 [place] % (Auto) 11 Eos % (Auto) 0 Baso % (Auto) 0 Neut # (Auto) 10.4 H Lymph # (Auto) 2.0 [place] # (Auto) 1.6 H Eos # (Auto) 0.0 Baso # (Auto) 0.1 Immature Gran # (Auto) 0.06 H Absolute Nucleated RBC 0.00 Immature Gran % 0 Nucleated RBC % 0 Sodium 134 L Potassium 3.8 Chloride 97 L Carbon Dioxide 24.0 Anion Gap 13 BUN 31 H Creatinine 6.0 H* D Estim Creat Clear Calc 9.4 L eGFR 8 L* BUN/Creatinine Ratio 5 L Glucose 149 H D Calculated Osmolality 277 Calcium 8.5 Hepatitis A IgM Ab Non Reactive Hep Bs Antigen Non Reactive Hep Bs Antibody Reactive (Immune) Hep B Core IgM Ab Non Reactive Hepatitis C Antibody Non Reactive INSPECTOR MATERIAL DISPOSITION - A/P Assessment and plan (1) Intramural leiomyoma of uterus: Status: Acute Assessment and plan: POD#1 1. Continue routine post operative care 2. Transition to PO meds. 3. Encourage to ambulate 4. Patient will be ready for discharge from a gynecologic standpoint/postoperative standpoint on 05/09/2024. Request medicine/nephrology team to provide recommendations if it is okay to discharge. 5. Home care instructions reviewed Postoperative Procedures: Procedures Operation Date: 05/07/24 10:45 Actual Procedure Side Surgeon p Total Abdominal Hysterectomy with Bilateral Salpingectomy Stevie Cope MD Time Spent With Patient Time: Total time spent is greater than 50% in coordination of care (as documented) at patient's floor/unit and/or counseling patient: Time with patient: less than 15 minutes
--- NOTE | 2024-05-08 16:45 | PC.NURSE ---
Pt request OFF 15 min early R/T - post hysterectomp-will report to CN
--- NOTE | 2024-05-08 17:08 | PC.NURSE ---
Tx discontinue 15 mins early due to patient c/o lower abdomen pain. Able to removed 1,860 ml of fluid net. Post tx BP137/59, HR 73, Temp 98.0. Pt no c/o SOB. Respiration even and unlabored. Sating at 95% RA. Pressure dressing on right upper arm av graft clean, dry, and intact. Pressure dressing needs to be remove around 1900. Report given to Ganesh SIDDIQUI
[2024-05-08] MEDS: HYDROMORPHONE HCL 2 MG TABLET PO (17:14)
[2024-05-08] MEDS: GABAPENTIN 100 MG CAPSULE PO (20:37)
[2024-05-09] VITALS: BP 123/65; PULSE 74; RESP 18; TEMP 36; O2SAT 92
--- NOTE | 2024-05-09 01:28 | PC.NURSE ---
Dr. Echeverria was made aware about pt's bladder scan results. Bladder scan shows no urine retained in bladder. No new orders for pt at this time.
[2024-05-09] MEDS: ACETAMINOPHEN IVPB 1,000 MG/100 ML VIAL 250 MG IV ×2 (02:22→07:59)
[2024-05-09 03:48] VITALS: BP 127/60; PULSE 76; RESP 18; TEMP 36.3; O2SAT 93
--- NOTE | 2024-05-09 04:05 | PC.NURSE ---
Dr. Cope was made aware about pt's bladder scan results. Bladder scan shows no urine retained in bladder. Per dr. Cope give pt a bolus of ns over 1 hr.
[2024-05-09] MEDS: SODIUM CHLORIDE 0.9% 500 ML 500 ML IV (04:17)
[2024-05-09] MEDS: ceFAZolin/D5W 2 GM IV 2 GM/100 ML BAG IV (05:11)
[2024-05-09 05:59] LABS: Basophils # (Auto) 0.1 Thou/mm3 (0.0-0.2); Basophils % (Auto) 1 % (0-2.5); Eosinophils # (Auto) 0.3 Thou/mm3 (0.0-0.5); Eosinophils % (Auto) 3 % (0-10); Hematocrit 31.7 % (36.0-46.0); Hemoglobin 10.6 g/dL (12.0-16.0); Immature Granulocytes % (Auto) 0 % (0-0); Immature Granulocytes Auto 0.03 Thou/mm3 (0.00-0.00); Lymphocytes % (Auto) 21 % (10-50); Mean Corpuscular HGB Conc 33.4 g/dl (31.0-37.0); Mean Corpuscular Hemoglobin 30.9 pg (25.0-35.0); Mean Corpuscular Volume 92 fL (80-100); Monocytes # (Auto) 1.3 Thou/mm3 (0.0-0.8); Monocytes % (Auto) 13 % (0-12); Neutrophils % (Auto) 62 % (37-80); Nucleated Red Blood Cell % 0 /100 WBC (0); Platelet Count 162 Thou/mm3 (140-440); RDW Standard Deviation 42.8 fL (36.4-46.3); Red Blood Count 3.43 Miln/mm3 (4.00-5.20); White Blood Count 9.7 Thou/mm3 (3.6-11.0)
[2024-05-09 06:43] LABS: Albumin, Serum 3.9 gm/dL (3.5-5.0); Albumin/Globulin Ratio 1.7 (1.2-2.2); Alkaline Phosphatase 85 U/L (46-116); Anion Gap 7 (7-16); Aspartate Amino Transferase < 8 U/L (0-34); BUN/Creatinine Ratio 5 Ratio (12-20); Bilirubin,Total 0.2 mg/dL (0.3-1.2); Blood Urea Nitrogen 22 mg/dL (9-23); Calcium 8.7 mg/dL (8.3-10.6); Calcium (Corrected) 8.8 mg/dL (8.5-10.1); Carbon Dioxide 26.8 mMol/L (20.0-31.0); Chloride 100 mMol/L (98-107); Creatinine (Component) 4.3 mg/dL (0.6-1.3); Estimated Creatinine Clearance 13.1 mL/min (>60); Globulin 2.3 gm/dL (2.3-3.5); Glucose 189 mg/dL (74-106); Osmolality,Calculated 276 (275-295); Potassium 3.5 mMol/L (3.4-5.1); Sodium 134 mMol/L (136-145); Total Protein 6.2 gm/dL (5.7-8.2); eGFR 11 See Note
[2024-05-09 06:53] LABS: Alanine Aminotransferase < 7 U/L (10-49)
[2024-05-09] MEDS: INSULIN LISPRO (AdmeLOG) 1 UNIT/0.01 ML UNIT SC (07:07)
[2024-05-09 07:57] VITALS: BP 148/71; PULSE 74; RESP 18; TEMP 36.1; O2SAT 98
[2024-05-09 08:00] VITALS: BP 148/71; PULSE 74
[2024-05-09] MEDS: DOCUSATE SOD 100 MG CAPSULE PO (08:00)
[2024-05-09] MEDS: BUMETANIDE 0.5 MG TABLET 2 MG PO (08:00)
[2024-05-09] MEDS: carVEDILOL 3.125 MG TABLET 6.25 MG PO (08:00)
--- NOTE | 2024-05-09 08:45 | ESPR_ITS ---
Documentation for date of: 05/09/24 CELEBRITY CHEF ENTREPRENEUR MEDIA PERSONALITY Subjective Subjective Interval history: Patient doing well this morning. Pain is adequately controlled on the current regimen. No incisional complaints, no chest pain, shortness of breath, breathing difficulties. Ambulating, tolerating p.o., passing flatus and voiding without difficulty. Hospitalist and nephrology consulting due to her end-stage renal disease requiring dialysis Exam Vital Signs Temp Pulse Resp BP Pulse Ox O2 Del Method O2 Flow Rate 97.0 F 74 18 148/71 H 98 Nasal Cannula 2 05/09/24 07:57 05/09/24 08:00 05/09/24 07:57 05/09/24 08:00 05/09/24 07:57 05/09/24 07:57 05/09/24 07:57 Constitutional Constitutional: no acute distress Routine HEENT Exam Head: Present normocephalic and atraumatic Eye: Present EOMI and PERRL ENT: Present mucous membranes moist Routine Neck Exam Neck: Present supple and trachea midline Routine Respiratory Exam Respiratory: Present chest non-tender, lungs clear, normal breath sounds and no resp distress Routine Cardiovascular Exam Cardiovascular: Present RRR Routine Abdominal Exam Abdominal: Present soft and normoactive bowel sounds Routine Extremities Exam Extremities: Present full ROM Routine Skin Exam Skin: Present intact and dry Routine Neurological Exam Neurological: Present alert, oriented X3 and CN II-XII intact Routine Psychiatric Exam Psychiatric: Present normal affect and normal thought process Urinary Catheter Management Cath placed during this visit: no CELEBRITY CHEF ENTREPRENEUR MEDIA PERSONALITY - PN: Obj Data Labs 05/09/24 05:30 05/09/24 05:30 Labs: Laboratory Results - last 24 hr 05/08/24 05/09/24 05:39 05:30 WBC 9.7 RBC 3.43 L Hgb 10.6 L Hct 31.7 L MCV 92 MCH 30.9 MCHC 33.4 RDW Std Deviation 42.8 Plt Count 162 Neut % (Auto) 62 Lymph % (Auto) 21 [place] % (Auto) 13 H Eos % (Auto) 3 Baso % (Auto) 1 Neut # (Auto) 6.0 Lymph # (Auto) 2.0 [place] # (Auto) 1.3 H Eos # (Auto) 0.3 Baso # (Auto) 0.1 Immature Gran # (Auto) 0.03 H Absolute Nucleated RBC 0.00 Immature Gran % 0 Nucleated RBC % 0 Sodium 134 L Potassium 3.5 Chloride 100 Carbon Dioxide 26.8 Anion Gap 7 BUN 22 Creatinine 4.3 H* D Estim Creat Clear Calc 13.1 L eGFR 11 L* BUN/Creatinine Ratio 5 L Glucose 189 H Calculated Osmolality 276 Calcium 8.7 Corrected Calcium 8.8 Total Bilirubin 0.2 L AST < 8 ALT < 7 L Alkaline Phosphatase 85 Total Protein 6.2 Albumin 3.9 Globulin 2.3 Albumin/Globulin Ratio 1.7 Hepatitis A IgM Ab Non Reactive Hep Bs Antigen Non Reactive Hep Bs Antibody Reactive (Immune) Hep B Core IgM Ab Non Reactive Hepatitis C Antibody Non Reactive CELEBRITY CHEF ENTREPRENEUR MEDIA PERSONALITY - A/P Assessment and plan (1) Intramural leiomyoma of uterus: Status: Acute Assessment and plan: POD#2 1. Continue routine post operative care 2. Transition to PO meds. 3. Encourage to ambulate 4. Anticipate discharge home today. 5. Home care instructions reviewed (2) History of hysterectomy, supracervical: Status: Acute (3) End stage renal disease: Status: Acute (4) Dialysis patient: Status: Acute (5) Heart failure: Status: Acute Postoperative Procedures: Procedures Operation Date: 05/07/24 10:45 Actual Procedure Side Surgeon p Total Abdominal Hysterectomy with Bilateral Salpingectomy Stevie Cope MD Time Spent With Patient Time: Total time spent is greater than 50% in coordination of care (as documented) at patient's floor/unit and/or counseling patient: Time with patient: less than 15 minutes
--- NOTE | 2024-05-09 08:46 | ESDS_ITS ---
Planned Discharge Date 05/09/24 DS: Providers Provider Date of admission: 05/07/24 08:20 Primary care physician: Jorge A Crocker MD Admitting Provider: Stevie Cope MD Attending Provider on Admission: Stevie Cope MD Consults: 05/07/24 11:45 Consult to Adult Hospitalist Stat Comment: ESRD, PPH, TIA Consulting Provider: Gasper Haddad 05/07/24 15:33 Consult to Nephrology Routine Comment: ESRD on hemodialysis Consulting Provider: Dariana Vigil 05/07/24 23:32 Referral Vitaliy Routine Comment: Attending Provider on DC: Stevie Cope MD Discharging Provider: Stevie Cope MD DS: Diagnosis Discharge Diagnosis (1) Heart failure: Status: Acute (2) Dialysis patient: Status: Acute (3) End stage renal disease: Status: Acute (4) History of hysterectomy, supracervical: Status: Acute (5) Intramural leiomyoma of uterus: Status: Acute Problem List Completed Was Problem List Reviewed/Reconciled?: Yes Hospital Course Hospital Course Hospital course: Lexus is a 58-year-old with end-stage renal disease, heart failure, history of cerebrovascular accident who is currently postoperative day #2 status post supra cervical abdominal hysterectomy for significantly large leiomyoma of uterus that was unresponsive to medical treatment. Patient underwent 1 round of dialysis yesterday. She is meeting postoperative milestones and she is ready for discharge home today. 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 Vital Signs Temp Pulse Resp BP Pulse Ox O2 Del Method O2 Flow Rate 97.0 F 74 18 148/71 H 98 Nasal Cannula 2 05/09/24 07:57 05/09/24 08:00 05/09/24 07:57 05/09/24 08:00 05/09/24 07:57 05/09/24 07:57 05/09/24 07:57 Discharge Plan Plan Patient Disposition: HOME (Self Care) Patient condition on transfer: Stable Prescriptions/Referrals Prescriptions/Med Rec: New hydromorphone [Dilaudid] 2 mg tablet 2 mg PO Q6H MDD 6 PRN (Reason: pain) 7 Days Qty: 28 0RF acetaminophen 500 mg tablet 500 mg PO Q6H PRN (Reason: fever or pain) 7 Days Qty: 28 0RF Continued carvedilol 6.25 mg Tablet 6.25 mg PO BID Rx Instructions: must administer with a meal/food bumetanide 2 mg Tablet 2 mg PO BID gabapentin 100 mg Capsule 100 mg PO HS levothyroxine 50 mcg Capsule 50 mcg PO QDAY Referrals: Jorge A Crocker MD [Primary Care Provider] - Stevie Cope MD [Physician] - Patient/Caregiver Discharge Instructions Meds to Beds: Yes Discharge Activity: activity as tolerated Education Materials: Abdominal Hysterectomy Dc Print Language: Telugu Stand Alone Forms: Marva Award Info., Patient Portal Info Letter, DC from Surgery
--- NOTE | 2024-05-09 09:39 | ESPR_ITS ---
Documentation for date of: 05/09/24 Subjective Subjective Interval history: Patient seen and examined at bedside this morning. POD2. No acute overnight events. Patient with no acute complaints; tolerating diet; passing gas; ambulating independently; and pain well controlled. Avitia removed. Patient states she is scared to bear down for BM due to fear of abdominal pain. Will recommend to continue stool softener and encourage ambulation. Exam Vital Signs Temp Pulse Resp BP Pulse Ox O2 Del Method O2 Flow Rate 97.0 F 74 18 148/71 H 98 Nasal Cannula 2 05/09/24 07:57 05/09/24 08:00 05/09/24 07:57 05/09/24 08:00 05/09/24 07:57 05/09/24 07:57 05/09/24 07:57 Narrative Exam Gen: AAOx3, resting comfortably, pleasant to speak with HEENT: NCAT, PERRLA, EOMI, MMM CVS: normal S1, S2. RRR. No MRG Resp: CTA B/L. No rhonchi, rales, crackles or wheezing Abd: soft, mild TTP, non-distended. BS+ in all 4 quadrants. Abdominal binder noted MSK: Good ROM in BUE & BLE. No edema or rash. Fistula in RUE Neuro: CN II-XII grossly intact. Strength 5/5 in BUE & BLE. Objective Labs 05/09/24 05:30 05/09/24 05:30 Labs: Laboratory Results - last 24 hr 05/08/24 05/09/24 05:39 05:30 WBC 9.7 RBC 3.43 L Hgb 10.6 L Hct 31.7 L MCV 92 MCH 30.9 MCHC 33.4 RDW Std Deviation 42.8 Plt Count 162 Neut % (Auto) 62 Lymph % (Auto) 21 [place] % (Auto) 13 H Eos % (Auto) 3 Baso % (Auto) 1 Neut # (Auto) 6.0 Lymph # (Auto) 2.0 [place] # (Auto) 1.3 H Eos # (Auto) 0.3 Baso # (Auto) 0.1 Immature Gran # (Auto) 0.03 H Absolute Nucleated RBC 0.00 Immature Gran % 0 Nucleated RBC % 0 Sodium 134 L Potassium 3.5 Chloride 100 Carbon Dioxide 26.8 Anion Gap 7 BUN 22 Creatinine 4.3 H* D Estim Creat Clear Calc 13.1 L eGFR 11 L* BUN/Creatinine Ratio 5 L Glucose 189 H Calculated Osmolality 276 Calcium 8.7 Corrected Calcium 8.8 Total Bilirubin 0.2 L AST < 8 ALT < 7 L Alkaline Phosphatase 85 Total Protein 6.2 Albumin 3.9 Globulin 2.3 Albumin/Globulin Ratio 1.7 Hepatitis A IgM Ab Non Reactive Hep Bs Antigen Non Reactive Hep Bs Antibody Reactive (Immune) Hep B Core IgM Ab Non Reactive Hepatitis C Antibody Non Reactive Quality Measures Quality Measures VTE prophylaxis Assessment & Plan Assessment Current Active Medications: Generic Name Dose Route Start Last Admin Trade Name Freq PRN Reason Stop Dose Admin Bumetanide 2 mg 05/07/24 21:00 05/09/24 08:00 Bumetanide 0.5 Mg Tablet PO 06/06/24 20:59 2 mg BID MAX Administration Carvedilol 6.25 mg 05/07/24 21:00 05/09/24 08:00 Carvedilol 3.125 Mg Tablet PO 06/06/24 20:59 6.25 mg BID MAX Administration Dextrose 25 ml 05/07/24 22:33 Dextrose 50%-Water Inj 50 Ml Syringe IV 06/06/24 22:32 Q15MIN PRN BG 50-70 responsive npo pt Dextrose 50 ml 05/07/24 22:33 Dextrose 50%-Water Inj 50 Ml Syringe IV 06/06/24 22:32 Q15MIN PRN BG <50 OR BG <70 & pt unresponsive Diphenhydramine HCl 25 mg 05/07/24 11:43 Diphenhydramine Inj 50 Mg/Ml Vial IV 06/06/24 11:42 Q2HR PRN ITCHING Docusate Sodium 100 mg 05/08/24 09:00 05/09/24 08:00 Docusate Sod 100 Mg Capsule PO 06/07/24 08:59 100 mg QDAY MAX Administration Gabapentin 100 mg 05/07/24 21:00 05/08/24 20:37 Gabapentin 100 Mg Capsule PO 06/06/24 20:59 100 mg HS MAX Administration Glucagon 1 mg 05/07/24 22:33 Glucagon Inj 1 Mg Vial IM Q15MIN PRN BG <70, and no IV access Hydromorphone HCl 2 mg 05/08/24 08:00 05/08/24 17:14 Hydromorphone Hcl 2 Mg Tablet PO 05/13/24 07:59 2 mg Q3HR PRN Administration PAIN Promethazine HCl 25 mg/ Sodium 51 mls @ 2.5 mls/min 05/07/24 11:43 Chloride IV 06/06/24 11:42 Q6HR PRN NAUSEA OR VOMITING Cefazolin Sodium 2 gm in 100 mls @ 100 mls/hr 05/07/24 19:00 05/09/24 05:11 Ancef 2gm Ivpb IV 05/14/24 18:59 100 mls/hr Q8HR MAX Administration Metronidazole 500 mg in 100 mls @ 200 mls/hr 05/07/24 22:30 05/08/24 22:00 Flagyl 500 Mg Iv IV 05/14/24 22:29 200 mls/hr Q12H MAX Administration Acetaminophen 1,000 mg in 100 mls @ 250 mls/hr 05/08/24 08:00 05/09/24 07:59 Ofirmev Inj IV 05/10/24 11:59 250 mls/hr Q6H MAX Administration Insulin Human Lispro 0 unit 05/07/24 22:48 05/09/24 07:07 Insulin Lispro (Admelog) 1 Unit/0.01 Ml Unit SC 06/06/24 22:47 1 unit ACHS MAX Administration Protocol Levothyroxine Sodium 50 mcg 05/10/24 06:00 Levothyroxine Sodium 25 Mcg Tablet PO 06/09/24 05:59 ACBR MAX Ondansetron HCl 4 mg 05/07/24 06:00 05/08/24 02:08 Ondansetron Inj 2 Mg/Ml Inj 2 Ml IV 06/06/24 05:59 4 mg Q6HR PRN Administration NAUSEA OR VOMITING Protocol Plan Patient is a 58-year-old female with ESRD on HD MWF, HFrEF with last EF 40% hypertension, hypothyroidism and history of CVA who underwent total abdominal hysterectomy with bilateral salpingectomy with gynecology. Postop day 2. Hospitalist team was consulted to manage comorbid conditions, including CHF, ESRD. #Uterine fibroids, s/p BROOKE BS Patient is postop day 2 Continue pain control with Tylenol, gabapentin and p.o. Dilaudid as needed On Ancef and Flagyl Zofran and promethazine as needed Continue bowel regimen; patient passing gas and encouraged to ambulate. Recommend incentive spirometer to prevent postop atelectasis #ESRD on HD MWF CHEM panel consistent with ESRD labs Nephrology consulted for inpatient hemodialysis Renally dose medications and avoid nephrotoxic agents when possible #HFrEF, last EF 40% #HTN Does not appear to be in exacerbation, as she is saturating well on room air and has no pitting edema in her BLE, with clear breath sounds Would advise gentle IV fluids although patient is tolerating diet at this time Resume home Bumex and Coreg Continue to monitor vitals and renal function #Hypothyroidism Continue home levothyroxine 50 mcg #History of CVA Would recommend starting 81mg ASA Thank you for allowing us to participate in the care of your patient! Patient seen and care discussed with my attending Dr. Haddad. Sarwat Alonzo MD PGY-3 Attending Provider Attestation/Addendum I reviewed labs, imaging, EKG, home medications and prior available records. Face to face evaluation was performed by me. I have personally examined the patient and discussed assessment and plan with the IM team. I reviewed the resident note and agree with the plan with exceptions as below. Leiomyoma status post hysterectomy ESRD on hemodialysis History of CVA Chronic HFpEF Hypothyroidism WBC is downtrending Management of pain and constipation as needed. Removed Avitia catheter Senna as needed for constipation Outpatient follow-up with nephrology for hemodialysis Resume home levothyroxine Continue CHF medications Follow-up with [facility] as outpatient Internal medicine team will sign off. Call for any questions
--- NOTE | 2024-05-09 09:42 | PD.RESPRO ---
Documentation for date of: 05/09/24 Subjective Subjective Interval history: The patient is a 58-year-old female with a previous medical history of end-stage renal disease on hemodialysis, last dialysis session was done yesterday, hypertension, diabetes, HFrEF status post AICD implantation, status post CVA with right-sided weakness, status post cataract surgery who was admitted to the hospital for elective hysterectomy. Operation went without complications, EBL 100 mL, early postoperative unremarkable. The plan is for the patient to stay in the hospital for a few days for postoperative management and monitoring. PAtient;s reconciliation coordinator is Dr. Eugene in [place]. Router Setter Dr. Vigil was consulted for end-stage renal disease management and planned dialysis. In the post op room: Blood pressure 198/61, heart rate 67, afebrile. She denies shortness of breath, chest pain, abdominal pain, increased leg swelling. Labs 05/05/2024 showed WBCs 8.1, hemoglobin 12.8, sodium 135, potassium 4.0, chloride 95, BUN 23, creatinine 5, EGFR 10, glucose 240. 05/08/24: Patient was seen and examined by the bedside. No acute overnight events. 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 UO is 0.2L. Her dialysis session is scheduled for today. The patient will receive dialysis inpatient on Saturday if she will stay in hospital further. Pertinent labs WBC 14.1, hemoglobin 10.9, hematocrit 32.7%, sodium 134, potassium 3.8, BUN 31, creatinine 6, EGFR 8. Did not have bowel movement yet, will be started on stool softeners. UO is 200 ml, [place]itia will removed if she will be able to void on her own. 05/09/24: Patient seen and examined at bedside, patient should not receive dialysis treatment yesterday, had dialysis treatment yesterday, 1.860 mL removed during dialysis yesterday, patient tolerated dialysis well, patient has graft on right arm which was used for dialysis. Patient has decreased urine output, complains of voiding no urine since surgery, was given IV fluid by PHYSICAL CHEMISTRY PROFESSOR yesterday night, reported voiding urine. Patient reports no bowel movement, does report cough passing flatus. If patient remains hospitalized, will get another dialysis treatment in a.m. Exam Vital Signs Temp Pulse Resp BP Pulse Ox O2 Del Method O2 Flow Rate 97.0 F 74 18 148/71 H 98 Nasal Cannula 2 05/09/24 07:57 05/09/24 08:00 05/09/24 07:57 05/09/24 08:00 05/09/24 07:57 05/09/24 07:57 05/09/24 07:57 Narrative Exam Physical Exam General: Awake and in no acute distress. Conversational and non-toxic appearing. HEENT: Normocephalic, atraumatic, mucous membranes moist. Heart: Regular rate and rhythm, no murmurs. Lungs: Clear to auscultation with no wheezing or crackles. Abdomen: Soft, nondistended, nontender, positive bowel sounds. ?No guarding or rebound tenderness. Neurologic: Alert and oriented x3, and patient able to move all 4 extremities. Extremities: No edema. AV fistula + thrill. Skin: No rash or ecchymoses. Objective Labs 05/09/24 05:30 05/09/24 05:30 Labs: Laboratory Results - last 24 hr 05/08/24 05/09/24 05:39 05:30 WBC 9.7 RBC 3.43 L Hgb 10.6 L Hct 31.7 L MCV 92 MCH 30.9 MCHC 33.4 RDW Std Deviation 42.8 Plt Count 162 Neut % (Auto) 62 Lymph % (Auto) 21 [place] % (Auto) 13 H Eos % (Auto) 3 Baso % (Auto) 1 Neut # (Auto) 6.0 Lymph # (Auto) 2.0 [place] # (Auto) 1.3 H Eos # (Auto) 0.3 Baso # (Auto) 0.1 Immature Gran # (Auto) 0.03 H Absolute Nucleated RBC 0.00 Immature Gran % 0 Nucleated RBC % 0 Sodium 134 L Potassium 3.5 Chloride 100 Carbon Dioxide 26.8 Anion Gap 7 BUN 22 Creatinine 4.3 H* D Estim Creat Clear Calc 13.1 L eGFR 11 L* BUN/Creatinine Ratio 5 L Glucose 189 H Calculated Osmolality 276 Calcium 8.7 Corrected Calcium 8.8 Total Bilirubin 0.2 L AST < 8 ALT < 7 L Alkaline Phosphatase 85 Total Protein 6.2 Albumin 3.9 Globulin 2.3 Albumin/Globulin Ratio 1.7 Hepatitis A IgM Ab Non Reactive Hep Bs Antigen Non Reactive Hep Bs Antibody Reactive (Immune) Hep B Core IgM Ab Non Reactive Hepatitis C Antibody Non Reactive Quality Measures Quality Measures VTE prophylaxis Assessment & Plan Assessment Current Active Medications: Generic Name Dose Route Start Last Admin Trade Name Freq PRN Reason Stop Dose Admin Bumetanide 2 mg 05/07/24 21:00 05/09/24 08:00 Bumetanide 0.5 Mg Tablet PO 06/06/24 20:59 2 mg BID MAX Administration Carvedilol 6.25 mg 05/07/24 21:00 05/09/24 08:00 Carvedilol 3.125 Mg Tablet PO 06/06/24 20:59 6.25 mg BID MAX Administration Dextrose 25 ml 05/07/24 22:33 Dextrose 50%-Water Inj 50 Ml Syringe IV 06/06/24 22:32 Q15MIN PRN BG 50-70 responsive npo pt Dextrose 50 ml 05/07/24 22:33 Dextrose 50%-Water Inj 50 Ml Syringe IV 06/06/24 22:32 Q15MIN PRN BG <50 OR BG <70 & pt unresponsive Diphenhydramine HCl 25 mg 05/07/24 11:43 Diphenhydramine Inj 50 Mg/Ml Vial IV 06/06/24 11:42 Q2HR PRN ITCHING Docusate Sodium 100 mg 05/08/24 09:00 05/09/24 08:00 Docusate Sod 100 Mg Capsule PO 06/07/24 08:59 100 mg QDAY MAX Administration Gabapentin 100 mg 05/07/24 21:00 05/08/24 20:37 Gabapentin 100 Mg Capsule PO 06/06/24 20:59 100 mg HS MAX Administration Glucagon 1 mg 05/07/24 22:33 Glucagon Inj 1 Mg Vial IM Q15MIN PRN BG <70, and no IV access Hydromorphone HCl 2 mg 05/08/24 08:00 05/08/24 17:14 Hydromorphone Hcl 2 Mg Tablet PO 05/13/24 07:59 2 mg Q3HR PRN Administration PAIN Promethazine HCl 25 mg/ Sodium 51 mls @ 2.5 mls/min 05/07/24 11:43 Chloride IV 06/06/24 11:42 Q6HR PRN NAUSEA OR VOMITING Cefazolin Sodium 2 gm in 100 mls @ 100 mls/hr 05/07/24 19:00 05/09/24 05:11 Ancef 2gm Ivpb IV 05/14/24 18:59 100 mls/hr Q8HR MAX Administration Metronidazole 500 mg in 100 mls @ 200 mls/hr 05/07/24 22:30 05/08/24 22:00 Flagyl 500 Mg Iv IV 05/14/24 22:29 200 mls/hr Q12H MAX Administration Acetaminophen 1,000 mg in 100 mls @ 250 mls/hr 05/08/24 08:00 05/09/24 07:59 Ofirmev Inj IV 05/10/24 11:59 250 mls/hr Q6H MAX Administration Insulin Human Lispro 0 unit 05/07/24 22:48 05/09/24 07:07 Insulin Lispro (Admelog) 1 Unit/0.01 Ml Unit SC 06/06/24 22:47 1 unit ACHS MAX Administration Protocol Levothyroxine Sodium 50 mcg 05/10/24 06:00 Levothyroxine Sodium 25 Mcg Tablet PO 06/09/24 05:59 ACBR MAX Ondansetron HCl 4 mg 05/07/24 06:00 05/08/24 02:08 Ondansetron Inj 2 Mg/Ml Inj 2 Ml IV 06/06/24 05:59 4 mg Q6HR PRN Administration NAUSEA OR VOMITING Protocol Plan The patient is a 58-year-old female with a previous medical history of end-stage renal disease on hemodialysis, last dialysis session was done yesterday, hypertension, diabetes, HFrEF status post AICD implantation, status post CVA with right-sided weakness, status post cataract surgery who was admitted to the hospital for elective hysterectomy. Operation went without complications, EBL 100 mL, early postoperative unremarkable. The plan is for the patient to stay in the hospital for a few days for postoperative management and monitoring. Router Setter Dr. Vigil was consulted for end-stage renal disease management and planned dialysis. #ESRD on dialysis Plan: -Patient received dialysis treatment yesterday, had about 1.8 L fluid removed -Was given IV fluids this morning by PHYSICAL CHEMISTRY PROFESSOR because patient complained of no urine output #S/p hysterectomy 05/07/24 #HTN #Diabetes #HFrEF EF 40% s/p ICD placement #History of CVA with right sided hemiparesis - management per primary team Plan of care discussed with attending Dr. Yaritza Kaminski, PGY 1. Attending Provider Attestation/Addendum Patient seen and examined with resident physician Dr. Kaminski. Note reviewed, agree with findings and recommendations. Patient of Dr. Eugene admitted for hysterectomy. Did receive dialysis yesterday. Patient passing gas. Possible discharge today if able to have a bowel movement. Next dialysis scheduled for tomorrow due to [place] schedule if she remains in the hospital.
== END 2024-05-09 11:20 | disposition home or self-care (01) | DRG 519 ==
LOC: S2W1 08:25 → S3NX 19:47
PROVIDERS: Anesthesiology; Internal Medicine; Admitting Provider Obstetrics & Gynecology; PCP Family Medicine; Visit Provider Obstetrics & Gynecology
PROC: 0UT90ZZ Resection of Uterus, Open Approach (ICD-10-PCS; principal; 2024-05-07 10:30)
DX: D25.1 Intramural leiomyoma of uterus (principal); I69.351 Hemiplegia and hemiparesis following cerebral infarction affecting right dominant side; N18.6 End stage renal disease; Z99.2 Dependence on renal dialysis; E11.22 Type 2 diabetes mellitus with diabetic chronic kidney disease; Z79.82 Long term (current) use of aspirin; G89.29 Other chronic pain; I50.42 Chronic combined systolic (congestive) and diastolic (congestive) heart failure; D72.829 Elevated white blood cell count, unspecified; E03.9 Hypothyroidism, unspecified; I13.2 Hypertensive heart and chronic kidney disease with heart failure and with stage 5 chronic kidney disease, or end stage renal disease
CPT/HCPCS: 36415; 80048; 80053; 80074; 84132; 84703; 85025; 86706; 86850; 86900; 86901; 87081; 93005; A4217; A4649; J0131; J0689; J0690; J1100; J1815; J2270; J2405; J2704; J2710; J2765; J3010; J3490; J7030; J7040; Q5106; A9270; J1596; J1836; J2598